=== PATIENT | female | born 1965 | race American Indian/Alaskan Native ===

== ENCOUNTER 2020-04-28 06:24 | Day surgery (SDC) | payer OTHER ==
--- NOTE | 2020-04-26 09:59 | Anesthesia Consultation ---
Anesthesia Consult and Med Hx Date of service: 04/28/20 - Airway Anesthetic Teeth Evaluation: Poor ROM Head & Neck: Adequate Mental/Hyoid Distance: Adequate Mallampati Class: Class II Intubation Access Assessment: Probably Good - Pulmonary Exam CTA: Yes - Cardiac Exam Cardiac Exam: RRR (no mumur appreciated on exam today) - Pre-Operative Health Status ASA Pre-Surgery Classification: ASA2 Proposed Anesthetic Plan: General - Pulmonary Hx Smoking: No Hx Respiratory Symptoms: No - Cardiovascular System Hx Hypertension: Yes Hx Heart Attack/AMI: No (recent neg nuc stress test done at CT per patient ) Hx Percutaneous Transluminal Coronary Angioplasty (PTCA): No Hx Cardia Arrhythmia: No Hx Heart Murmur: Yes (hx rheumatic fever at age 7; no valve issues per patient) - Central Nervous System CVA: No - Gastrointestinal Hx Gastroesophageal Reflux Disease: No - Endocrine Hx Renal Disease: No Hx Liver Disease: No Hx Non-Insulin Dependent Diabetes: Yes Hx Thyroid Disease: No - Other Systems Hx Obesity: Yes (BMI 32) - Additional Comments Anesthesia Medical History Comments: No hx anesthetic complications.
[2020-04-26 10:14] LABS: Hematocrit 37.2 % (30.3-42.9); Hemoglobin 12.8 gm/dl (10.1-14.3); Mean Corpuscular HGB Conc 34 % (30-34); Mean Corpuscular Volume 89 fl (79-97); Platelet Count 294 K/mm3 (140-440); Red Blood Count 4.19 M/mm3 (3.65-5.03)
[2020-04-26 10:33] LABS: Blood Urea Nitrogen 11 mg/dL (7-17); Calcium 9.8 mg/dL (8.4-10.2); Hemolysis Index 2
[2020-04-26 10:34] LABS: BUN/Creatinine Ratio 16
[~2020-04-28 06:24] MED LIST: ACETAMINOPHEN 500 MG TAB PO SCH; CELECOXIB 200 MG CAP PO NR; GABAPENTIN 300 MG CAP PO NR; LACTATED RINGERS 1,000 ML IV SCH; MIDAZOLAM 2 MG/2 ML INJ IV NR; ceFAZolin/Water 2 GM/20 ML 2 GM/20 ML SYRINGE IV NR
[2020-04-28] MEDS ORDERED: LIDOCAINE (1%) 10 MG/1 ML VIAL 20 ML MDV ONE ×2 (07:15→07:51)
[2020-04-28] MEDS ORDERED: BUPIVACAINE/PF (0.25%) 2.5 MG/ML 30 ML VIAL INFILTRATI ONE ×2 (07:15→10:06)
[2020-04-28] MEDS ORDERED: SODIUM CHLORIDE P/F VIAL 10 ML 0 ML ONE (07:17)
[2020-04-28] MEDS ORDERED: METHYLENE BLUE 50 MG/10 ML AMP ONE (07:28)
[2020-04-28] MEDS ORDERED: INSULIN REGULAR, HUMAN 100 UNIT/ML 3ML VIAL IV NR (07:37)
[2020-04-28] MEDS ORDERED: HYDROmorphone 1 MG/1 ML INJ IV PRN (07:38)
--- NOTE | 2020-04-28 07:38 | Anesthesia Day of Surgery ---
Anesthesia Day of Surgery - Day of Surgery Patient Examined: Yes Patient H&P Reviewed: Yes Patient is NPO: Yes
[2020-04-28] MEDS ORDERED: ONDANSETRON 4 MG/2 ML INJ ONE (07:40)
[2020-04-28] MEDS ORDERED: LIDOCAINE MPF (2%) 20 MG/1 ML VIAL 5 ML ONE (07:40)
[2020-04-28] MEDS ORDERED: dexAMETHasone 20 MG/5 ML VIAL ONE (07:40)
[2020-04-28] MEDS ORDERED: HYDROmorphone 1 MG/1 ML INJ ONE (07:40)
[2020-04-28] MEDS ORDERED: propofoL 200 MG/20 ML VIAL IV ONE (07:40)
[2020-04-28] MEDS ORDERED: WATER FOR IRRIG STERILE 1,500 ML BOTTLE IR ONE (10:05)
[2020-04-28] MEDS ORDERED: LIDOCAINE (1%) 10 MG/1 ML VIAL 20 ML MDV INFILTRATI ONE (10:06)
--- NOTE | 2020-04-28 10:42 | Operative Report ---
Operative Report Operative Report: Operative Report: April 28, 2020 Preoperative diagnosis: Right breast ALH of the lower outer quadrant Postoperative diagnosis: Same Procedure: Right breast needle localization excisional biopsy of the lower outer quadrant Surgeon: Carolyn Escobedo MD Assistant Professor Of Surgery: Anurag Mallory MD Anesthesia: General Findings: Right wire and clip present within radiograph specimen Complications: None EBL: Minimal Disposition: PACU in good condition Indications for operative procedure: This is a 54 year old lady with recent abnormal right mammogram and biopsy findings of atypical lobular hyperplasia (ALH). Recommendations are to proceed with an excisional biopsy given breast cancer risk association to rule out malignancy. She wished to proceed with the above procedure and understood additional procedures may be indicated pending final pathology. Procedure in detail: The patient was taken to radiology for wire placement for localization known area of ALH. Patient was then taken to the operating room. Gen. anesthesia was administered. Right breast and axilla were prepped and draped in the normal sterile operative fashion. The wire was identified. Timeout was performed. Attention was then taken towards the right breast. Wire was located at the 7:00 position. A lower outer quadrant breast incision around 7:00 position was made with a 15 blade knife and dissection taken down to subcutaneous tissues. First began raising of the superior flap with removal of the wire from the skin with dissection taken past the area of concern and then taken down posteriorly, followed by raising of the inferior flap, medial flap and lateral flap with all flaps taken past the area of concern and then posteriorly past the wire. The breast area of concern was appropriately removed posteriorly with the aid of the Bovie cautery. The wire was not encountered. Specimen was marked and then sent to pathology and radiology; radiograph specimen with wire and clip present. Breast cavity was irrigated and hemostasis was obtained. The posterior deep breast tissues were approximated and closed using interrupted 3-0 Vicryl. The subcutaneous tissues were then approximated and closed using interrupted 3-0 Vicryl followed by closing of the skin with a running 4-0 Monocryl and skin affix. The patient tolerated surgery very well and she was awaken from anesthesia without any complication and transported to PACU in good condition.
--- NOTE | 2020-04-28 10:46 | Short Stay Summary ---
Short Stay Documentation Date of service: 04/28/20 - History H&P: obtained from office - Allergies and Medications Current Medications: Allergies lisinopril Allergy (Verified 04/21/20 17:31) Swelling Home Medications Medication Instructions Recorded Confirmed Last Taken Type amLODIPine [Norvasc] 5 mg PO DAILY 04/21/20 04/28/20 04/28/20 06:00 History hydroCHLOROthiazide [HCTZ] 25 mg PO QDAY 04/21/20 04/28/20 04/27/20 10:00 History Glimepiride [Amaryl] 4 mg PO QAM 04/26/20 04/28/20 04/27/20 10:00 History oxyCODONE /ACETAMINOPHEN [Percocet 1 tab PO Q6HR PRN #20 tablet 04/28/20 Unknown Rx 5/325] Active Medications Acetaminophen (Tylenol) 1,000 mg PO PREOP TK Stop: 04/28/20 23:59 Celecoxib (Celebrex) 200 mg PO PREOP NR Stop: 04/28/20 23:59 Gabapentin (Gabapentin) 300 mg PO PREOP NR Stop: 04/28/20 23:59 Hydromorphone HCl (Dilaudid) 0.5 mg IV Q10MIN PRN PRN Reason: Pain , Severe (7-10) Stop: 04/28/20 23:00 Cefazolin Sodium (Ancef/Sterile Water 2 Gm/20 Ml) 2 gm in 20 mls @ 80 mls/hr IV PREOP NR; Protocol Stop: 04/28/20 23:59 Lactated Ringer's (Lactated Ringers) 1,000 mls @ 100 mls/hr IV DIRECT TK Stop: 04/28/20 23:59 Midazolam HCl (Versed) 2 mg IV PREOP NR Stop: 04/28/20 23:59 - Brief post op/procedure progress note Date of procedure: 04/28/20 Pre-op diagnosis: Right breast ALH Post-op diagnosis: same Procedure: Right breast needle localization excisional biopsy Anesthesia: GETA Findings: Right wire and clip present Surgeon: JOAN JIMENEZ Estimated blood loss: minimal Pathology: list Specimen disposition: to lab - Disposition Condition at discharge: Good Disposition: DC-01 TO HOME OR SELFCARE Short Stay Discharge Plan Activity: other (no heavy lifting) Diet: regular Wound: keep clean and dry (may shower in 48 hours; no baths; wear breast binder) Follow up with: JOAN JIMENEZ MD [Staff Physician] - 7 Days Prescriptions: oxyCODONE /ACETAMINOPHEN [Percocet 5/325] 1 tab PO Q6HR PRN #20 tablet PRN Reason: Pain
[2020-04-28 11:56] VITALS: BP 134/79
--- NOTE | 2020-04-28 13:04 | Post Anesthesia Evaluation ---
- Post Anesthesia Evaluation Patient Participated: Yes Airway Patent: Yes Stable Respiratory Function: Yes Nausea/Vomiting: No Temp > 96.8F: Yes Pain Manageable: Yes Adequeate Hydration: Yes Anesthesia Complications: No
--- NOTE | 2020-04-28 14:23 | Mammography Report ---
RIGHT BREAST NEEDLE LOCALIZATION USING X-RAY GUIDANCE The procedure was explained to the patient and informed consent obtained. PROCEDURE: Using 3 mL of 1% buffered lidocaine, a 25 gauge needle and x-ray guidance, the left infer ior breast lesion at 7:00 was localized with standard needle/wire technique. There were no immediate complications. INTERPRETATION: 2 images made during the procedure demonstrate the needle to be properly positioned. IMPRESSION: Successful right breast lesion localization as described above. Thank you for allowing us to participate in the care of your patient. Signer Name: Syed Castillo Jr, MD Signed: 04/28/2020 2:18 PM Workstation Name: [id number]
--- NOTE | 2020-04-28 14:24 | Mammography Report ---
MAMMOGRAPHY SURGICAL SPECIMEN HISTORY: Excisional biopsy, breast cancer FINDINGS: A single image containing the excisional biopsy which includes the localization wire and bi opsy clip is presented. Please correlate with pathology for surgical margins. IMPRESSION: Successful excisional biopsy of the right breast lesion. Signer Name: Syed Castillo Jr, MD Signed: 04/28/2020 2:20 PM Workstation Name: [id number]
== END 2020-04-28 11:50 | disposition home or self-care (01) ==
LOC: OR 06:24
PROVIDERS: ATTEND Surgery
DX: N60.81 Other benign mammary dysplasias of right breast (principal); Z20.828 Contact with and (suspected) exposure to other viral communicable diseases; N60.31 Fibrosclerosis of right breast; I10 Essential (primary) hypertension; G43.909 Migraine, unspecified, not intractable, without status migrainosus; E78.00 Pure hypercholesterolemia, unspecified; E66.9 Obesity, unspecified; E11.9 Type 2 diabetes mellitus without complications; Z80.3 Family history of malignant neoplasm of breast; Z79.899 Other long term (current) drug therapy; Z79.84 Long term (current) use of oral hypoglycemic drugs; Z88.8 Allergy status to other drugs, medicaments and biological substances; Z90.49 Acquired absence of other specified parts of digestive tract; Z98.890 Other specified postprocedural states; Z68.32 Body mass index [BMI] 32.0-32.9, adult; Z86.2 Personal history of diseases of the blood and blood-forming organs and certain disorders involving the immune mechanism; Z90.710 Acquired absence of both cervix and uterus
CPT/HCPCS: 19125; 19281; 36415; 76098; 80048; 82962; 85027; 88307; 88341; 88342; J0690; J1100; J1170; J2250; J2405; J2704; J7120; U0003; J1815; Q9968

== ENCOUNTER 2020-08-17 07:56 | Outpatient (CLI) | payer OTHER ==
--- NOTE | 2020-08-17 09:30 | Mammography Report ---
DIGITAL DIAGNOSTIC MAMMOGRAM WITH CAD CONVENTIONAL, 08/17/2020 CLINICAL INFORMATION / INDICATION: Patient presents for evaluation of an area of palpable concern in the right breast and for bilateral breast pain. Patient has history of remote breast reduction, and b enign right breast excisional biopsy in April 2020. ABNORMAL TESTING TECHNIQUE: Digital bilateral mammographic imaging was performed. Spot compression views were obtaine d. This examination was interpreted with the benefit of Computer-aided Detection analysis. COMPARISON: Prior mammogram 07/25/2019 FINDINGS: Breast Density: There are scattered areas of fibroglandular density. New benign postsurgical change is seen in the 6:00 position of the right breast, middle depth, corres ponding with the site of palpable concern. No suspicious mass or calcification is identified in the r ight breast. There is an 8 mm nodular density in the 12 to 1:00 position of the left breast, middle d epth, which appears slightly more prominent compared with prior mammogram. IMPRESSION: 1. New benign postsurgical change accounts for the area of palpable concern in the right breast. Targ eted ultrasound of the area of palpable concern is recommended for confirmation of benign findings. 2. A nodular density in the left breast appear slightly more prominent compared with prior mammogram. While this may reflect an intramammary lymph node, recommend targeted left breast ultrasound for fur ther evaluation. Follow up recommendation: Ultrasound BI-RADS Category 0: Incomplete. Needs additional imaging evaluation and/or prior mammograms for malena juarez. A "normal" or negative report should not discourage follow up or biopsy of a clinically significant f inding. A written summary of these findings will be mailed to the patient. The patient will be entered into a mammography reporting system which will generate a reminder letter for the patient's next appointmen t at the appropriate interval. According to the [employer], yearly mammograms are recommended starting at age 40 and continuing as long as a woman is in good health. Breast MRI is recommended for women with an monica roximately 20-25% or greater lifetime risk of breast cancer, including women with a strong family his tory of breast or ovarian cancer and women who have been treated for Hodgkin's disease. Signer Name: Gisela Hargrove MD Signed: 08/17/2020 9:26 AM Workstation Name: [email or web address]
== END 2020-08-17 07:57 | disposition home or self-care (01) ==
LOC: SPVWC 07:56
PROVIDERS: ATTEND Surgery
DX: N63.21 Unspecified lump in the left breast, upper outer quadrant (principal); R92.8 Other abnormal and inconclusive findings on diagnostic imaging of breast
CPT/HCPCS: 77066

== ENCOUNTER 2020-09-22 08:54 | Outpatient (CLI) | payer OTHER ==
--- NOTE | 2020-09-22 10:49 | Ultrasound Report ---
ULTRASOUND BREAST LEFT LIMITED, 09/22/2020 CLINICAL INFORMATION / INDICATION: Abnormal mammogram. TECHNIQUE: Targeted ultrasound evaluation was performed of the area of interest. COMPARISON: Diagnostic mammogram 08/17/2020, screening mammogram 07/25/2019 FINDINGS: In the 1:00 position, 2 cm from the nipple, a 3 mm ovoid simple cyst is noted. This matches the position and general tissue depth of the density in question though is smaller than would have b een expected. IMPRESSION: No simple cyst is seen matching the site though smaller in size and expected compared to the mammographic lesion. Study of recent diagnostic mammography, full field and spot compression view s, compared to the 2019 prior examination shows at most minimal change and this may not have truly ch anged in the interval. As there is a benign finding matching this location, I am not strongly concern ed at this point. Follow up recommendation: Follow-up left mammogram in 6 months BI-RADS Category 3: Probably Benign. Followup in 6 months. A normal or "negative" report should not preclude biopsy or follow-up of a clinically suspicious find ing. Signer Name: Hong Muñoz MD Signed: 09/22/2020 10:44 AM Workstation Name: [email or web address]
== END 2020-09-22 08:55 | disposition home or self-care (01) ==
LOC: SPVWC 08:54
PROVIDERS: ATTEND Surgery
DX: N60.02 Solitary cyst of left breast (principal)

== ENCOUNTER 2020-12-07 09:22 | Outpatient (CLI) | payer OTHER ==
--- NOTE | 2020-12-07 11:08 | Magnetic Resonance Report ---
MRI BREAST BILATERAL WITH AND WITHOUT CONTRAST, 12/07/2020 CLINICAL INFORMATION / INDICATION: ABNORMAL MAMMOGRAM. Patient presents for high-risk screening breas t MRI secondary to history of right breast LCIS. Patient also had a probably benign nodule in the lef t breast seen on recent mammogram. TECHNIQUE: Axial T1 and T2-weighted fat sat images were obtained precontrast. Gadolinium-based contra st was injected intravenously and serial axial T1 weighted images with fat saturation were obtained. 3-D MIP projections, kinetic analysis, and subtraction imaging were utilized to evaluate. A dedicated 8-channel breast coil was used for image acquisition. COMPARISON: Prior mammogram 08/17/2020 and left breast ultrasound 09/22/2020 FINDINGS: BREAST DENSITY: There are scattered areas of fibroglandular density. BACKGROUND ENHANCEMENT: Low level background enhancement within both breasts. RIGHT BREAST: No dominant mass or suspicious area of enhancement in the right breast. There is benign postsurgical change in the inferior right breast. LEFT BREAST: No dominant mass or suspicious area of enhancement in the left breast. There is no abnor mal enhancement to correspond with the nodular density in the 12:00 left breast seen on recent mammog fabi, suggesting a benign etiology. AXILLAE: No pathologically enlarged axillary lymph nodes. ADDITIONAL FINDINGS: Limited imaging of the thorax and upper abdomen demonstrates no focal abnormalit y. IMPRESSION: 1. No MRI evidence of malignancy. 2. Benign postsurgical change in the right breast. 3. No abnormal enhancement to correspond with the nodular density in the left breast seen on recent m ammogram, suggesting a benign etiology. Follow up recommendation: Back to schedule. BI-RADS Category 2: Benign. Signer Name: Gisela Hargrove MD Signed: 12/07/2020 11:04 AM Workstation Name: [id number]
== END 2020-12-07 09:23 | disposition home or self-care (01) ==
LOC: SPVIMAG 09:22
PROVIDERS: ATTEND Surgery
DX: R92.8 Other abnormal and inconclusive findings on diagnostic imaging of breast (principal); D24.1 Benign neoplasm of right breast; Z80.3 Family history of malignant neoplasm of breast
CPT/HCPCS: A9575; C8908; 77049